=== PATIENT | male | born 1950 | race Caucasian/White ===

== ENCOUNTER 2016-07-23 08:10 | Day surgery (SDC) | payer MEDICARE, OTHER ==
--- NOTE | ~2016-07-23 | EGD ---
EGD REPORT [facility] [address] 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 Estimated blood loss: None. Procedure: Pre-Anesthesia Assessment: - After reviewing the risks and benefits, the patient was deemed in satisfactory condition to undergo the procedure. - Prior to the procedure, a History and Physical was performed, and patient medications and allergies were reviewed. The patient's tolerance of previous anesthesia was also reviewed. The risks and benefits of the procedure and the sedation options and risks were discussed with the patient. All questions were answered, and informed consent was obtained. Prior Anticoagulants: The patient has taken no previous anticoagulant or antiplatelet agents. ASA Grade Assessment: III - A patient with severe systemic disease. After reviewing the risks and benefits, the patient was deemed in satisfactory condition to undergo the procedure. After obtaining informed consent, the endoscope was passed under direct vision. Throughout the procedure, the patient's blood pressure, pulse, and oxygen saturations were monitored continuously. The GIF [id number] was introduced through the mouth, and advanced to the third part of duodenum. The upper GI endoscopy was accomplished without difficulty. The patient tolerated the procedure well. Findings: The examined esophagus was normal. Diffuse mild inflammation characterized by congestion (edema) and granularity was found in the gastric antrum. Biopsies were taken with a cold forceps for histology. Estimated blood loss: none. The gastroesophageal junction (on retroflexion) was normal. The examined duodenum was normal without any evidence of adenomatous tissue. EGD REPORT [address] [address] NAME: CHRIS IYER : [birth year] STATUS : REG [facility]#: [id number] AGE: 65 ADM/REG DATE : 07/23/16 MR#: [id number] REPORT SERV DATE: 07/23/16 DICTATED BY: SUSANNE HARVEY DATE: 07/23/16 REPORT STATUS : Draft TRANSCRIBED BY: [employer] DATE: 07/23/16 Impression: - Normal esophagus. - Bile gastritis. Biopsied. - Normal gastroesophageal junction. - Normal examined duodenum. Recommendation: - Discharge patient to home (ambulatory). - Return to previous diet. - Continue present medications. - Await pathology results. - Repeat the upper endoscopy in 5 years for surveillance. - Patient has a contact number available for emergencies. The signs and symptoms of potential delayed complications were discussed with the patient. Return to normal activities tomorrow. Written discharge instructions were provided to the patient. Procedure Code(s): --- Professional --- 54888, Esophagogastroduodenoscopy, flexible, transoral; with biopsy, single or multiple Diagnosis Code(s): --- Professional --- K29.60, Other gastritis without bleeding K31.7, Polyp of stomach and duodenum CPT copyright 2013 [employer] [place] [employer]. All rights reserved. The codes documented in this report are preliminary and upon skirt maker review may be revised to meet current compliance requirements. SUSANNE HARVEY MD 07/23/2016 9:53 AM This report has been signed electronically. Number of Addenda: 0 Note Initiated On: 07/23/2016 9:24 AM Scope Withdrawal Time 0 hours 0 minutes 0 seconds [id number] [id number]
[~2016-07-23 08:10] MED LIST: ATORVASTATIN PO; BEN25 PO; GLUCPH PO; METFORM PO; PRIN20 PO; [UNRECOGNIZED DRUG - REMARK]
== END 2016-07-23 23:59 | disposition home or self-care (01) ==
LOC: DMU 08:10
PROVIDERS: Internal Medicine Gastroenterology
PROC: 0DB68ZX Excision of Stomach, Via Natural or Artificial Opening Endoscopic, Diagnostic (ICD-10-PCS; principal; 2016-07-23 09:45)
DX: K29.60 Other gastritis without bleeding (principal); K31.7 Polyp of stomach and duodenum; E66.9 Obesity, unspecified; I10 Essential (primary) hypertension; G47.33 Obstructive sleep apnea (adult) (pediatric); E11.9 Type 2 diabetes mellitus without complications; Z98.52 Vasectomy status; N40.0 Benign prostatic hyperplasia without lower urinary tract symptoms; Z87.442 Personal history of urinary calculi; M19.90 Unspecified osteoarthritis, unspecified site; H91.90 Unspecified hearing loss, unspecified ear; E78.00 Pure hypercholesterolemia, unspecified; Z79.84 Long term (current) use of oral hypoglycemic drugs
CPT/HCPCS: 82962; 88305